=== PATIENT | male | born 1990 | race Caucasian/White ===

== ENCOUNTER 2016-05-08 17:08 | Emergency (ER) | payer SELFPAY | END 2016-05-08 18:40 | disposition home or self-care (01) | LOC: MADERS 17:08 | DX: L02.31 Cutaneous abscess of buttock (principal); Z87.891 Personal history of nicotine dependence | CPT/HCPCS: 10060; 87070; 87076; 87205 ==

== ENCOUNTER 2016-06-07 10:26 | Emergency (ER) | payer SELFPAY ==
[~2016-06-07 10:26] MED LIST: Sodium Chloride Irrig Solution 250 ML BOT ONE
[2016-06-07] MEDS ORDERED: Lidocaine 1% 20 ML MDV ONE (10:54)
== END 2016-06-07 11:40 | disposition home or self-care (01) ==
LOC: MADERS 10:26
DX: L02.31 Cutaneous abscess of buttock (principal); Z87.891 Personal history of nicotine dependence
CPT/HCPCS: 10060; J2001

== ENCOUNTER 2016-06-20 10:30 | Emergency (ER) | payer SELFPAY ==
[2016-06-20] MEDS ORDERED: Lidocaine 2% w/Epinephrine 1:200K 20 ML VIAL ONE (11:20)
[2016-06-20] MEDS ORDERED: Clindamycin 150 MG CAP ONE (11:55)
[2016-06-20] MEDS ORDERED: Triple Antibiotic Oint 1 GM Packet ONE (11:55)
== END 2016-06-20 12:15 | disposition home or self-care (01) ==
LOC: MADERS 10:30
DX: L02.31 Cutaneous abscess of buttock (principal); Z87.891 Personal history of nicotine dependence
CPT/HCPCS: 10060; 87070; 87205

== ENCOUNTER 2016-07-03 15:15 | Emergency (ER) | payer SELFPAY ==
[2016-07-03] MEDS ORDERED: Doxycycline 100 MG CAP ONE (15:53)
[2016-07-03] MEDS ORDERED: Clindamycin 150 MG CAP ONE (15:54)
== END 2016-07-03 16:05 | disposition home or self-care (01) ==
LOC: MADERS 15:15
DX: L02.31 Cutaneous abscess of buttock (principal); Z87.891 Personal history of nicotine dependence
CPT/HCPCS: 99283

== ENCOUNTER 2016-07-04 11:15 | Emergency (ER) | payer SELFPAY ==
[2016-07-04] MEDS ORDERED: Lidocaine 2% w/Epinephrine 1:200K 20 ML VIAL ONE (11:25)
== END 2016-07-04 12:12 | disposition home or self-care (01) ==
LOC: MADERS 11:15
DX: L02.31 Cutaneous abscess of buttock (principal); J44.9 Chronic obstructive pulmonary disease, unspecified; Z79.2 Long term (current) use of antibiotics; Z79.899 Other long term (current) drug therapy; Z87.891 Personal history of nicotine dependence
CPT/HCPCS: 10060

== ENCOUNTER 2016-07-06 08:36 | Emergency (ER) | payer SELFPAY ==
[2016-07-06] MEDS ORDERED: Lidocaine Viscous Sol 2% 15 ml UD Cup ONE (09:14)
--- NOTE | 2016-07-06 09:51 | RAD ---
2 VIEWS OF CHEST: Date: 07/06/16 COMPARISON: 06/22/09. HISTORY: Chest tightness. FINDINGS: Two views of the chest show normal sized cardiomediastinal silhouette. There is no evidence of conso lidation, mass, or pleural effusion. The bones are unremarkable. IMPRESSION: No evidence of acute cardiopulmonary disease. POS: [facility]
== END 2016-07-06 10:28 | disposition home or self-care (01) ==
LOC: MADERS 08:36
DX: R10.13 Epigastric pain (principal); Z87.891 Personal history of nicotine dependence; Z79.2 Long term (current) use of antibiotics; Z79.899 Other long term (current) drug therapy
CPT/HCPCS: 71020; 93005

== ENCOUNTER 2016-10-21 08:06 | Emergency (ER) | payer SELFPAY ==
[2016-10-21] MEDS ORDERED: Triamcinolone 40 MG/ML VIAL ONE (08:41)
== END 2016-10-21 08:55 | disposition home or self-care (01) ==
LOC: MADERS 08:06
DX: L23.7 Allergic contact dermatitis due to plants, except food (principal); Z87.891 Personal history of nicotine dependence
CPT/HCPCS: 96372; J3301

== ENCOUNTER 2016-11-07 14:38 | Emergency (ER) | payer SELFPAY | END 2016-11-07 16:40 | disposition home or self-care (01) | LOC: MADERS 14:38 | DX: L25.3 Unspecified contact dermatitis due to other chemical products (principal); Z87.891 Personal history of nicotine dependence | CPT/HCPCS: 96372; J1040 ==

== ENCOUNTER 2016-11-25 21:44 | Emergency (ER) | payer SELFPAY ==
[2016-11-25] MEDS ORDERED: methylPREDNISolone Acetate 40 mg/ml Vial ONE (22:04)
== END 2016-11-25 22:25 | disposition home or self-care (01) ==
LOC: MADERS 21:44
DX: L25.3 Unspecified contact dermatitis due to other chemical products (principal); Z87.891 Personal history of nicotine dependence
CPT/HCPCS: 96372; J1030

== ENCOUNTER 2021-11-09 15:01 | Emergency (ER) | payer OTHER, SELFPAY | END 2021-11-09 16:05 | disposition home or self-care (01) | LOC: MADERS 15:01 | DX: S93.602A Unspecified sprain of left foot, initial encounter (principal); Z87.891 Personal history of nicotine dependence; X58.XXXA Exposure to other specified factors, initial encounter ==

== ENCOUNTER 2022-02-16 10:57 | Emergency (ER) | payer OTHER, SELFPAY ==
[2022-02-16] MEDS ORDERED: Ibuprofen 800 MG TAB ONE (11:46)
== END 2022-02-16 11:52 | disposition home or self-care (01) ==
LOC: MADERS 10:57
DX: S90.31XA Contusion of right foot, initial encounter (principal); W23.0XXA Caught, crushed, jammed, or pinched between moving objects, initial encounter; Z87.891 Personal history of nicotine dependence

== ENCOUNTER 2023-04-03 14:44 | Emergency (ER) | payer BC, OTHER ==
[2023-04-03] MEDS ORDERED: Ondansetron ODT 4 MG TAB ONE (15:14)
== END 2023-04-03 15:20 | disposition home or self-care (01) ==
LOC: MADERS 14:44
DX: R11.10 Vomiting, unspecified (principal); R19.7 Diarrhea, unspecified; Z87.891 Personal history of nicotine dependence
CPT/HCPCS: Q0162